=== PATIENT | female | born 1975 ===

== ENCOUNTER 2017-06-04 08:25 | Outpatient (CLI) | payer BC ==
--- NOTE | 2017-06-04 11:24 | Mammography Report ---
BILATERAL DIGITAL DIAGNOSTIC MAMMOGRAM with CAD: 06/04/17 08:25:00 CLINICAL: Status post ultrasound biopsy of the right breast on 01/19/16 at [facility]. The pathology was reportedly benign but I do not have a copy of the path report. COMPARISON:[facility] [place] 12/02/15 mammogram FINDINGS: The breasts are heterogeneously dense, which may obscures small masses. An irregular right breast mass at 12 o'clock approximately 13 cm from the nipple correlates with the previously biopsied lesion. It is slightly smaller and less dense on the current mammogram and measures approximately 9 mm maximum. A biopsy clip is identified adjacent to it.No new mass, architectural distortion or suspicious calcifications. The left breast is negative. IMPRESSION: No mammographic evidence of malignancy. BI-RADS CATEGORY: 2 - - Benign RECOMMENDATION: Routine mammographic screening in one year. ACR BI-RADS MAMMOGRAPHIC CODES: 0 = Needs additional imaging evaluation; 1 = Negative; 2 = Benign; 3 = Probably benign; 4 = Suspicious; 5 = Malignant; 6 = Known biopsy-proven malignancy COMMENT: 1. Dense breast tissue, i.e., adenosis, fibrocystic changes, etc., may obscure an underlying neoplasm. 2. Approximately 10% of cancers are not detected with mammography. 3. A negative mammography report should not delay biopsy if a clinically suspicious mass is present. COMMENT: Patient follow-up letters are generated by our [employer] application.
== END 2017-06-04 08:26 | disposition home or self-care (01) ==
LOC: SPVWC 08:25
PROVIDERS: ATTEND Obstetrics & Gynecology
DX: N63 Unspecified lump in breast (principal)
CPT/HCPCS: 77066; G0204